=== PATIENT | female | born 1955 | race Caucasian/White ===

== ENCOUNTER 2017-04-20 09:21 | Emergency (ER) | payer BC ==
[2017-04-20 09:27] VITALS: BP 177/73; BMI 27.3
--- NOTE | 2017-04-20 11:09 | DR.GENAD ---
HPI - PCP Primary Care Physician: JAI - HPI Comment HPI Comment: PATIENT DENIES FEVER. NOT RELATED TO FOOD. PAIN GENERALIZE WITHOUT RADIATION. HEADACHE WORSE EVER. DIFFERENT FROM PREVIOUS HEADACHE. - Complaint/Symptoms Chief Complaint Doctors Comments: ABDOMINAL PAIN, NAUSEA, VOMITING AND HEADACHE TIMES SEVERAL HOURS. Chief Complaint:: "I HAVE BEEN THROWING UP AND NOW I HAVE A MIGRAINE Self Treatment fo Chief Complaint: NONE - Nurses notes reviewed Nurses Notes Review: Yes - Source History Provided: Patient - Mode of Arrival Mode of Arrival: Ambulatory - Timing Onset of Chief Complaint: 04/20/17 Came on: Suddenly - Duration Duration: Constant Duration: Hours - Severity Severity: Moderate PMH - PMH Past Medical History: Yes Past Medical History: Angina, Migraines, Liver Disease Past Surgical History: Yes Past Surgical History Comment: LIVER BX - Family History History of Family Medical Conditions: Yes Family Medical History: Hypertension - Social History Does patient currently use any type of tobacco product: No Have you used tobacco products in the last 12 months: No Type of Tobacco Use: None Does any household member use tobacco: No Alcohol Use: None Do you use any recreational Drugs:: No Lives With: Family Lives Where: Home - infectious screening In the last 2 months have you had wt loss of >10#?: NO Have you had fever, night sweats or hemotysis?: No Have you traveled outside the country in the last 6 months?: No Isolation: Standard ROS - Review of Systems Constitutional: No Symptoms Reported Eyes: No Symptoms Reported ENTM: No Symptoms Reported Respiratoy: No Symptoms Reported Cardiovascular: No Symptoms Reported Gastrointestinal/Abdominal: Abdominal Pain, Nausea, Vomiting Genitourinary: No Symptoms Reported Neurological: Headache Musculoskeletal: No Symptoms Reported Integumentary: No Symptoms Reported Hematologic/Lymphatic: No Symptoms Reported Endocrine: No Symptoms Reported All Other Systems: Reviewed and Negative PE - Vital Signs Vitals: Temperature 98.3 F Pulse Rate 77 Respiratory Rate 18 Blood Pressure 177/73 O2 Sat by Pulse Oximetry 98 - General Limitations: No Limitations General Appearance: Alert - Head Head Exam: Normal Inspection - Eyes Eye exam: Normal Appearance - ENT ENT Exam: Normal External Ear Exam External Ear Exam: Normal External Inspection TM/Canal Exam: Bilateral Normal Nose Exam: Normal Nose Exam Mouth Exam: Normal Inspection Throat Exam: Normal Inspection - Neck Neck Exam: Normal Inspection - Chest Chest Inspection: Symmetric Chest Wall Rise - Respiratory Respiratory Exam: Normal Lung Sounds Bilat Respiratory Exam: Bilateral Clear to Auscultation - Cardiovascular Cardiovascular Exam: Regular Rate, Normal Rhythm, Normal Heart Sounds - Abdominal Exam Abdominal Exam: Normal Bowel Sounds, Soft, Tenderness, Hyperactive Bowel Sounds Abdominal Tenderness: Diffuse, Moderate - Extremities Extremities Exam: Normal Inspection - Back Back Exam: Normal Inspection - Neurologic Neurological Exam: Alert, Oriented X3, CN II-XII Intact, Normal Gait, Reflexes Normal. negative: Motor Sensory Deficit - Psychiatric Psychiatric Exam: Normal Affect, Normal Mood - Skin Skin Exam: Normal Color MDM - Differential Diagnosis Differential Diagnosis: MIGRAINE, CVA, BOWEL OBSTRUCTION, ABDOMINAL PAIN Course - Treatment Treatment: SEE ORDERS - Education/Counseling Education/Counseling: Patient, Family, Education Educated On: Diagnosis, Needs for Follow Up ROR - Labs Reviewed Laboratory Results Reviewed?: Yes Result Diagrams: 04/20/17 11:25 04/20/17 11:25 Laboratory: WBC 6.2 X10^3/uL (3.6-10.0) 04/20/17 11:25 RBC 4.30 X10^6/uL (3.5-5.4) 04/20/17 11:25 Hgb 12.9 g/dL (12.0-16.0) 04/20/17 11:25 Hct 38.2 % (36.0-47.0) 04/20/17 11:25 MCV 88.8 fL (80.0-100.0) 04/20/17 11:25 MCH 29.9 pg (27.0-34.0) 04/20/17 11:25 MCHC 33.7 g/dL (33.0-35.0) 04/20/17 11:25 RDW 13.6 % (11.6-16.5) 04/20/17 11:25 Plt Count 132 X10^3/uL (150.0-450.0) L 04/20/17 11:25 MPV 9.1 fL (7.4-11.0) 04/20/17 11:25 Neut % 75.0 % (42.0-75.0) 04/20/17 11:25 Lymph % 18.6 % (21.0-51.0) L 04/20/17 11:25 Isabella % 5.6 % (0.0-13.0) 04/20/17 11:25 Eos % 0.3 % (0.9-2.9) L 04/20/17 11:25 Baso % 0.5 % (0.2-1.0) 04/20/17 11:25 Neut # 4.6 x10^3/uL (2.2-4.8) 04/20/17 11:25 Lymph # 1.1 X10^3/uL (1.3-2.9) L 04/20/17 11:25 Isabella # 0.3 x10^3/uL (0.3-0.8) 04/20/17 11:25 Eos # 0.0 x10^3/uL (0.0-0.2) 04/20/17 11:25 Baso # 0.0 X10^3/uL (0.0-0.1) 04/20/17 11:25 Absolute Nucleated RBC 0.0 /100WBC 04/20/17 11:25 Sodium 142 mmol/L (136-145) 04/20/17 11:25 Corrected Sodium 142 mmol/L (136-145) 04/20/17 11:25 Potassium 4.1 mmol/L (3.5-5.1) 04/20/17 11:25 Chloride 108 mmol/L (98-107) H 04/20/17 11:25 Carbon Dioxide 27.9 mmol/L (21-32) 04/20/17 11:25 BUN 10 mg/dL (7-18) 04/20/17 11:25 Creatinine 0.77 mg/dL (0.55-1.02) 04/20/17 11:25 Est GFR (MDRD) Af Amer > 60 (>60) 04/20/17 11:25 Est GFR (MDRD) Non-Af > 60 (>60) 04/20/17 11:25 Glucose 118 mg/dL (65-99) H 04/20/17 11:25 Calcium 9.1 mg/dL (8.5-10.1) 04/20/17 11:25 Corrected Calcium 10.0 mg/dL (8.5-10.1) 04/20/17 11:25 Total Bilirubin 0.80 mg/dL (0.2-1.0) 04/20/17 11:25 AST 39 Units/L (15-37) H 04/20/17 11:25 ALT 26 Units/L (12-78) 04/20/17 11:25 Alkaline Phosphatase 175 Units/L (46-116) H 04/20/17 11:25 Total Protein 6.2 g/dL (6.4-8.2) L 04/20/17 11:25 Albumin 2.9 g/dL (3.4-5.0) L 04/20/17 11:25 Globulin 3.3 g/dL (2.5-4.5) 04/20/17 11:25 Albumin/Globulin Ratio 0.9 Ratio (1.1-2.1) L 04/20/17 11:25 Amylase 28 Units/L (25-115) 04/20/17 11:25 Lipase 95 Units/L (73-393) 04/20/17 11:25 - XRAY XRAY Interpreted by: Radiologist XRAY Findings: REPORT DISCUSS WITH PATIENT. - Diagnosis Discharge Problem: Migraine, Sinusitis Vomiting Qualifiers: Vomiting type: bilious vomiting Nausea presence: with nausea Qualified Code(s) : R11.14 - Bilious vomiting Abdominal pain Qualifiers: Abdominal location: generalized Qualified Code(s): R10.84 - Generalized abdominal pain - Discharge Plan Disposition: 01 HOME, SELF-CARE Condition: Stable Prescriptions: Amoxicillin [Amoxil 875 mg] 875 mg PO BID #14 tab Ketorolac Tromethamine [Toradol Tab] 10 mg PO Q8H PRN #12 tab PRN Reason: Pain Ondansetron HCl [Zofran Tab 4 mg] 4 mg PO Q8H PRN #12 tab PRN Reason: Nausea/Vomiting - Follow ups/Referrals Follow ups/Referrals: Trip Romano [Primary Care Provider] - 3 days - Instructions Instructions: Migraine Headache, [id number], Sinusitis, Adult, [id number], Nausea and Vomiting, Adult, [id number] Additional Instructions: RETURN TO ED IF WORSE.
[2017-04-20] MEDS ORDERED: ZOFRAN INJ 4 MG VIAL IM ONE (11:17)
[2017-04-20] MEDS ORDERED: TORADOL 60 MG VIAL IM ONE (11:17)
[2017-04-20 11:42] LABS: BASOPHILS % (AUTO) 0.5 % (0.2-1.0); EOSINOPHILS % (AUTO) 0.3 % (0.9-2.9); HEMATOCRIT 38.2 % (36.0-47.0); HEMOGLOBIN 12.9 g/dL (12.0-16.0); LYMPHOCYTES # (AUTO) 1.1 X10^3/uL (1.3-2.9); LYMPHOCYTES % (AUTO) 18.6 % (21.0-51.0); MEAN CORPUSCULAR HEMOGLOBIN 29.9 pg (27.0-34.0); MEAN CORPUSCULAR HGB CONC 33.7 g/dL (33.0-35.0); MEAN CORPUSCULAR VOLUME 88.8 fL (80.0-100.0); MEAN PLATELET VOLUME 9.1 fL (7.4-11.0); MONOCYTES # (AUTO) 0.3 x10^3/uL (0.3-0.8); MONOCYTES % (AUTO) 5.6 % (0.0-13.0); NEUTROPHILS # (AUTO) 4.6 x10^3/uL (2.2-4.8); PLATELET COUNT 132 X10^3/uL (150.0-450.0); RED CELL DISTRIBUTION WIDTH 13.6 % (11.6-16.5); WHITE BLOOD COUNT 6.2 X10^3/uL (3.6-10.0)
[2017-04-20 11:51] LABS: ALANINE AMINOTRANSFERASE 26 Units/L (12-78); ALBUMIN 2.9 g/dL (3.4-5.0); ALKALINE PHOSPHATASE 175 Units/L (46-116); AMYLASE 28 Units/L (25-115); ASPARTATE AMINO TRANSFERASE 39 Units/L (15-37); BLOOD UREA NITROGEN 10 mg/dL (7-18); CALCIUM 9.1 mg/dL (8.5-10.1); CARBON DIOXIDE 27.9 mmol/L (21-32); CHLORIDE 108 mmol/L (98-107); COR NA(FOR HYPERGLY) 142 mmol/L (136-145); CREATININE 0.77 mg/dL (0.55-1.02); LIPASE 95 Units/L (73-393); SODIUM 142 mmol/L (136-145); TOTAL PROTEIN 6.2 g/dL (6.4-8.2); eGFR BLACK RACES > 60 (>60); eGFR NON BLACK RACES > 60 (>60)
[2017-04-20] MEDS ORDERED: TORADOL 60 MG VIAL ONE (12:13)
[2017-04-20] MEDS ORDERED: ZOFRAN INJ 4 MG VIAL ONE (12:13)
== END 2017-04-20 13:39 | disposition home or self-care (01) ==
LOC: ER 09:31
DX: G43.909 Migraine, unspecified, not intractable, without status migrainosus (principal); R11.14 Bilious vomiting; R10.84 Generalized abdominal pain; J32.9 Chronic sinusitis, unspecified
CPT/HCPCS: 36415; 70450; 74022; 80053; 82150; 83690; 85025; 96372; 99283; J1885; J2405

== ENCOUNTER 2017-10-10 19:34 | Emergency (ER) | payer BC ==
[2017-10-10 19:44] VITALS: BMI 27.0
--- NOTE | 2017-10-10 20:04 | DR.GENAD ---
HPI - PCP Primary Care Physician: - Complaint/Symptoms Chief Complaint Doctors Comments: Patient presents with complaint of abdominal pain that radiates to ther right back. She admits to cardiac stents a few months agol Chief Complaint:: Pt complaining of sharp pain at the top of abdomen and right middle of back. Pt states she had a stint put in in april of last year. Patient states she was at [employer] and the pain started about 15-20 minutes ago. - Source History Provided: Patient - Mode of Arrival Mode of Arrival: Ambulatory - Timing Onset of Chief Complaint: 10/10/17 PMH - PMH Past Medical History: Yes Past Medical History: Angina, Arthritis, Migraines, Liver Disease Past Surgical History: Yes Past Surgical History Comment: Stint last year - Family History History of Family Medical Conditions: Yes Family Medical History: Diabetes Mellitus, Cancer, NM Family Medical History Comment: BROTHER HAD SEVERAL STINTS AND HEART ATTACK - Social History Alcohol Use: None Do you use any recreational Drugs:: No - infectious screening Have you traveled outside the country in the last 6 months?: No Isolation: Standard ROS - Review of Systems Eyes: No Symptoms Reported ENTM: No Symptoms Reported Respiratoy: No Symptoms Reported Cardiovascular: No Symptoms Reported Gastrointestinal/Abdominal: No Symptoms Reported Genitourinary: No Symptoms Reported Neurological: No Symptoms Reported Musculoskeletal: No Symptoms Reported Integumentary: No Symptoms Reported Hematologic/Lymphatic: No Symptoms Reported Endocrine: No Symptoms Reported Psychiatric: No Symptoms Reported All Other Systems: Reviewed and Negative PE - Vital Signs Vitals: Temperature 99.4 F Pulse Rate [Left Radial] 67 Pulse Rate 66 Respiratory Rate 28 Blood Pressure [Right Arm] 164/80 Blood Pressure 169/73 O2 Sat by Pulse Oximetry 99 - General Limitations: No Limitations General Appearance: Alert, In No Apparent Distress - Head Head Exam: Normal Inspection, Atraumatic - Eyes Eye exam: Normal Appearance, PERRL, EOMI - ENT ENT Exam: Normal Exam External Ear Exam: Normal External Inspection TM/Canal Exam: Bilateral Normal Nose Exam: Normal Nose Exam Mouth Exam: Normal Inspection Throat Exam: Normal Inspection - Neck Neck Exam: Normal Inspection - Chest Chest Inspection: Normal Inspection, Symmetric Chest Wall Rise - Respiratory Respiratory Exam: Normal Lung Sounds Bilat Respiratory Exam: Bilateral Clear to Auscultation - Cardiovascular Cardiovascular Exam: Regular Rate, Normal Rhythm - Abdominal Exam Abdominal Exam: Normal Inspection, Normal Bowel Sounds Abdominal Tenderness: negative: RUQ, RLQ, LUQ, LLQ, Epigastrium, Suprapubic, Diffuse, Mild, Moderate, Severe, Other - Extremities Extremities Exam: Normal Inspection, Full ROM - Back Back Exam: Normal Inspection, Full ROM - Neurologic Neurological Exam: Alert, Oriented X3, CN II-XII Intact - Psychiatric Psychiatric Exam: Normal Affect - Skin Skin Exam: Warm, Dry, Intact Course - Reevaluation 1st: Improved - Education/Counseling Educated On: Treatment, Diagnosis, Prognosis, Needs for Follow Up ROR - Labs Reviewed Result Diagrams: 10/10/17 20:14 10/10/17 20:14 Laboratory: WBC 8.3 X10^3/uL (3.6-10.0) 10/10/17 20:14 RBC 4.41 X10^6/uL (3.5-5.4) 10/10/17 20:14 Hgb 13.1 g/dL (12.0-16.0) 10/10/17 20:14 Hct 38.5 % (36.0-47.0) 10/10/17 20:14 MCV 87.4 fL (80.0-100.0) 10/10/17 20:14 MCH 29.7 pg (27.0-34.0) 10/10/17 20:14 MCHC 34.0 g/dL (33.0-35.0) 10/10/17 20:14 RDW 14.1 % (11.6-16.5) 10/10/17 20:14 Plt Count 153 X10^3/uL (150.0-450.0) 10/10/17 20:14 MPV 9.5 fL (7.4-11.0) 10/10/17 20:14 Neut % (Auto) 59.2 % (42.0-75.0) 10/10/17 20:14 Lymph % (Auto) 28.3 % (21.0-51.0) 10/10/17 20:14 [place] % (Auto) 10.8 % (0.0-13.0) 10/10/17 20:14 Eos % (Auto) 1.2 % (0.9-2.9) 10/10/17 20:14 Baso % (Auto) 0.5 % (0.2-1.0) 10/10/17 20:14 Neut # (Auto) 4.9 x10^3/uL (2.2-4.8) H 10/10/17 20:14 Lymph # (Auto) 2.3 X10^3/uL (1.3-2.9) 10/10/17 20:14 [place] # (Auto) 0.9 x10^3/uL (0.3-0.8) H 10/10/17 20:14 Eos # (Auto) 0.1 x10^3/uL (0.0-0.2) 10/10/17 20:14 Baso # (Auto) 0.0 X10^3/uL (0.0-0.1) 10/10/17 20:14 Absolute Nucleated RBC 0.0 /100WBC 10/10/17 20:14 INR Target Range - 10/10/17 20:14 INR 0.98 (0.8-1.3) 10/10/17 20:14 APTT 27.4 SECONDS (22.9-36.5) 10/10/17 20:14 PTT Comment - 10/10/17 20:14 D-Dimer 155 ng/mL (0-400) 10/10/17 20:14 Sodium 141 mmol/L (136-145) 10/10/17 20:14 Corrected Sodium 142 mmol/L (136-145) 10/10/17 20:14 Potassium 4.0 mmol/L (3.5-5.1) 10/10/17 20:14 Chloride 107 mmol/L (98-107) 10/10/17 20:14 Carbon Dioxide 27.1 mmol/L (21-32) 10/10/17 20:14 BUN 16 mg/dL (7-18) 10/10/17 20:14 Creatinine 0.80 mg/dL (0.55-1.02) 10/10/17 20:14 Est GFR (MDRD) Af Amer > 60 (>60) 10/10/17 20:14 Est GFR (MDRD) Non-Af > 60 (>60) 10/10/17 20:14 Glucose 134 mg/dL (65-99) H 10/10/17 20:14 Calcium 8.4 mg/dL (8.5-10.1) L 10/10/17 20:14 Corrected Calcium 9.2 mg/dL (8.5-10.1) 10/10/17 20:14 Magnesium 1.7 mg/dL (1.7-2.9) 10/10/17 20:14 Total Bilirubin 0.60 mg/dL (0.2-1.0) 10/10/17 20:14 AST 24 Units/L (15-37) 10/10/17 20:14 ALT 24 Units/L (12-78) 10/10/17 20:14 Alkaline Phosphatase 166 Units/L (46-116) H 10/10/17 20:14 Creatine Kinase 67 Units/L (26-192) 10/10/17 20:14 CK-MB (CK-2) < 1.0 ng/mL (0-4.0) 10/10/17 20:14 CK/CKMB % Calc 1.5 % (<4) 10/10/17 20:14 Troponin I < 0.02 ng/mL (0-1.5) 10/10/17 20:14 Total Protein 6.4 g/dL (6.4-8.2) 10/10/17 20:14 Albumin 3.0 g/dL (3.4-5.0) L 10/10/17 20:14 Globulin 3.4 g/dL (2.5-4.5) 10/10/17 20:14 Albumin/Globulin Ratio 0.9 Ratio (1.1-2.1) L 10/10/17 20:14 Specimen Type Clean catch urine 10/10/17 21:14 Urine Color Yellow (YELLOW) 10/10/17 21:14 Urine Appearance Clear (CLEAR) 10/10/17 21:14 Urine pH 5.0 (5.0 - 8.0) 10/10/17 21:14 Ur Specific [place] 1.025 (1.000-1.030) 10/10/17 21:14 Urine Protein Negative (NEGATIVE) 10/10/17 21:14 Urine Glucose (UA) Negative (NEGATIVE) 10/10/17 21:14 Urine Ketones Negative (NEGATIVE) 10/10/17 21:14 Urine Occult Blood 1+ (NEGATIVE) 10/10/17 21:14 Urine Nitrite Negative (NEGATIVE) 10/10/17 21:14 Urine Bilirubin Negative (NEGATIVE) 10/10/17 21:14 Urine Urobilinogen 1+ (NORMAL) 10/10/17 21:14 Ur Leukocyte Esterase 1+ (NEGATIVE) 10/10/17 21:14 Urine RBC 0-2 /HPF (NONE SEEN) 10/10/17 21:14 Urine WBC 0-2 /HPF (NONE SEEN) 10/10/17 21:14 Ur Squamous Epith Cells Few /HPF (NEGATIVE) 10/10/17 21:14 Urine Bacteria Trace /HPF (NEGATIVE) 10/10/17 21:14 Ur Culture Indicated? No/not indicated 10/10/17 21:14 - XRAY XRAY Interpreted by: Radiologist (Chest: Conintued normal heart size with clear lungs and pleural spaces. Surface clothing artifact are projected over the central mediastinum . Impression No acute chest findings.) - Diagnosis Discharge Problem: Abdominal pain Qualifiers: Abdominal location: unspecified location Qualified Code(s): R10.9 - Unspecified abdominal pain - Discharge Plan Condition: Stable - Follow ups/Referrals Follow ups/Referrals: Trip Romano [Primary Care Provider] - 3 days - Instructions
[2017-10-10 20:25] LABS: BASOPHILS % (AUTO) 0.5 % (0.2-1.0); EOSINOPHILS # (AUTO) 0.1 x10^3/uL (0.0-0.2); EOSINOPHILS % (AUTO) 1.2 % (0.9-2.9); HEMATOCRIT 38.5 % (36.0-47.0); HEMOGLOBIN 13.1 g/dL (12.0-16.0); LYMPHOCYTES # (AUTO) 2.3 X10^3/uL (1.3-2.9); LYMPHOCYTES % (AUTO) 28.3 % (21.0-51.0); MEAN CORPUSCULAR HEMOGLOBIN 29.7 pg (27.0-34.0); MEAN CORPUSCULAR VOLUME 87.4 fL (80.0-100.0); MEAN PLATELET VOLUME 9.5 fL (7.4-11.0); MONOCYTES # (AUTO) 0.9 x10^3/uL (0.3-0.8); MONOCYTES % (AUTO) 10.8 % (0.0-13.0); NEUTROPHILS # (AUTO) 4.9 x10^3/uL (2.2-4.8); NEUTROPHILS % (AUTO) 59.2 % (42.0-75.0); PLATELET COUNT 153 X10^3/uL (150.0-450.0); RED BLOOD COUNT 4.41 X10^6/uL (3.5-5.4); RED CELL DISTRIBUTION WIDTH 14.1 % (11.6-16.5); WHITE BLOOD COUNT 8.3 X10^3/uL (3.6-10.0)
--- NOTE | 2017-10-10 20:29 | RAD ---
Examination: Portable AP chest History: Pain Comparison reference 01/12/2011 Findings: Continued normal heart size with clear lungs and pleural spaces. Surface clothing artifacts are projected over the central mediastinum. Impression: No acute chest findings. Reported By:
[2017-10-10 20:47] LABS: ALANINE AMINOTRANSFERASE 24 Units/L (12-78); ALKALINE PHOSPHATASE 166 Units/L (46-116); ASPARTATE AMINO TRANSFERASE 24 Units/L (15-37); BLOOD UREA NITROGEN 16 mg/dL (7-18); CALCIUM 8.4 mg/dL (8.5-10.1); CARBON DIOXIDE 27.1 mmol/L (21-32); CHLORIDE 107 mmol/L (98-107); CKMB % 1.5 % (<4); COR CA(FOR HYPOALB) 9.2 mg/dL (8.5-10.1); COR NA(FOR HYPERGLY) 142 mmol/L (136-145); CREATINE KINASE 67 Units/L (26-192); CREATINE KINASE MB < 1.0 ng/mL (0-4.0); MAGNESIUM 1.7 mg/dL (1.7-2.9); SODIUM 141 mmol/L (136-145); TOTAL PROTEIN 6.4 g/dL (6.4-8.2); TROPONIN I < 0.02 ng/mL (0-1.5); eGFR BLACK RACES > 60 (>60); eGFR NON BLACK RACES > 60 (>60)
[2017-10-10 21:28] LABS: BILIRUBIN,URINE NEGATIVE (NEGATIVE); BLOOD/HEMOGLOBIN,URINE 1+ (NEGATIVE); GLUCOSE, URINE NEGATIVE (NEGATIVE); KETONES,URINE NEGATIVE (NEGATIVE); LEUKOCYTE ESTERASE ,URINE 1+ (NEGATIVE); NITRITES,URINE NEGATIVE (NEGATIVE); PROTEIN,URINE NEGATIVE (NEGATIVE); UROBILINOGEN,URINE 1+ (NORMAL)
[2017-10-10 22:07] LABS: APPEARANCE,URINE CLEAR (CLEAR); COLOR,URINE YELLOW (YELLOW)
[2017-10-10 22:08] LABS: BACTERIA,URINE TRACE /HPF (NEGATIVE); RBC,URINE 0-2 /HPF (NONE SEEN); SQUAMOUS EPITHELIAL CELL,UR FEW /HPF (NEGATIVE)
[2017-10-10 22:18] VITALS: BP 145/65
== END 2017-10-10 22:18 | disposition home or self-care (01) ==
LOC: ER 19:34
DX: R10.84 Generalized abdominal pain (principal)
CPT/HCPCS: 36415; 71045; 80053; 81001; 82550; 82553; 83735; 84484; 85025; 85378; 85610; 85730; 93005; 93010; 96365; 99282; 99283; 99284

== ENCOUNTER → 2017-10-20 | Outpatient (CLI) | payer BC ==
[2017-10-10 22:18] VITALS: BP 145/65
--- NOTE | 2017-10-20 11:43 | CT ---
Examination: CT of the abdomen and pelvis without contrast. Clinical History: Right flank pain, history of kidney stones. Technique: Multiple axial images were obtained from the lung bases down to the pubic symphysis. No or al or intravenous contrast was administered. Dose reduction techniques including automated exposure c ontrol (AEC) and adjustment of mA and kV were utilized. Comparison: CT of the abdomen with contrast dated 06/05/2016. Findings: Coronary artery calcifications are noted, suggestive of coronary artery disease. A tiny pericardial e ffusion is noted. The remainder of the visualized portion of the lung bases is unremarkable. Surgical clips are noted in the gallbladder fossa, consistent with a prior cholecystectomy. A lack of intravenous contrast limits evaluation of the solid intra-abdominal organs. A 3 mm calculus is seen within the bladder. No renal or ureteral calculus is noted. No hydronephrosis or hydroureter is evident. The kidneys and bladder are otherwise within normal limits. There is a persistent prominent gastroesophageal lymph node measuring 1.9 x 1.5 cm, which may have mi nimally decreased in size since the prior examination. The borderline prominent 1.3 x 1.0 cm lymph no de is again noted in the jose alfredo hepatis, but also appears slightly smaller. A small area of soft tissue seen posterior to the duodenum on the prior examination, is less well vis ualized on today's examination due to the lack of intravenous contrast, but appears essentially stabl e in size measuring approximately 2.3 x 1.6 cm. The etiology is uncertain. Continued follow-up is rec ommended. The liver has a cirrhotic appearance. No focal hepatic mass is noted. The spleen, pancreas and adrenal glands are normal in appearance. The abdominal aorta is calcified and mildly tortuous, but is normal in caliber. The bowel gas pattern is non-obstructive. There is no free air. Scattered diverticula are seen associated with the colon. There is no CT evidence for acute diverticu litis. The small bowel is grossly unremarkable. The appendix is not visualized. The uterus is surgically absent. No pelvic mass or fluid collection is noted. Degenerative changes are noted in the spine. There is a stable anterior wedge compression deformity o f the T12 vertebra. No acute osseous abnormality is noted. Impression: 1. Small 3 mm bladder calculus, with no renal or ureteral calculus noted. No associated hydronephrosi s or hydroureter is seen. 2. Persistent prominent lymph nodes in the gastroesophageal region and the jose alfredo hepatis, as describe d above, which appear to have mildly decreased in size. The etiology is uncertain. Continued follow-u p is recommended. 3. A small area of soft tissue seen posterior to the duodenum on the prior examination, is less well visualized on today's examination due to the lack of intravenous contrast, but appears essentially st able in size measuring approximately 2.3 x 1.6 cm. The etiology is uncertain. Continued follow-up is recommended. 4. Cirrhotic liver. 5. Colonic diverticulosis without CT evidence for an acute diverticulitis. 6. Coronary artery calcifications, suggestive of coronary artery disease. 7. Tiny pericardial effusion. 8. Postsurgical changes from a prior cholecystectomy and hysterectomy. Reported By:
== END ==
LOC: RAD 10:39
PROVIDERS: ATTEND Internal Medicine
DX: R31.9 Hematuria, unspecified (principal); R10.84 Generalized abdominal pain
CPT/HCPCS: 74176

== ENCOUNTER 2022-08-05 12:10 | Observation (INO) ==
[2022-08-05] MEDS ORDERED: NS 1,000 ML IV 1,000 ML with SODIUM BICARBONATE 8.4% INJ ADULT 50 ML IV ONE ×4 (13:52→14:55)
[2022-08-05 14:14] LABS: BASOPHILS % (AUTO) 0.8 % (0.2-1.0); EOSINOPHILS # (AUTO) 0.1 x10^3/uL (0.0-0.2); EOSINOPHILS % (AUTO) 2.1 % (0.9-2.9); HEMATOCRIT 36.5 % (36.0-47.0); LYMPHOCYTES # (AUTO) 1.5 X10^3/uL (1.3-2.9); LYMPHOCYTES % (AUTO) 34.9 % (21.0-51.0); MEAN CORPUSCULAR HEMOGLOBIN 28.6 pg (27.0-34.0); MEAN CORPUSCULAR HGB CONC 32.9 g/dL (33.0-35.0); MEAN CORPUSCULAR VOLUME 86.8 fL (80.0-100.0); MEAN PLATELET VOLUME 9.3 fL (7.4-11.0); MONOCYTES # (AUTO) 0.5 x10^3/uL (0.3-0.8); MONOCYTES % (AUTO) 10.3 % (0.0-13.0); NEUTROPHILS # (AUTO) 2.3 x10^3/uL (2.2-4.8); NEUTROPHILS % (AUTO) 51.9 % (42.0-75.0); RED BLOOD COUNT 4.21 X10^6/uL (3.5-5.4); RED CELL DISTRIBUTION WIDTH 16.5 % (11.6-16.5); WHITE BLOOD COUNT 4.4 X10^3/uL (3.6-10.0)
[2022-08-05 14:29] LABS: ALBUMIN 3.1 g/dL (3.4-5.0); CALCIUM 8.7 mg/dL (8.5-10.1); CARBON DIOXIDE 27.3 mmol/L (21-32); COR CA(FOR HYPOALB) 9.4 mg/dL (8.5-10.1); CREATININE 1.43 mg/dL (0.55-1.02); TOTAL PROTEIN 5.8 g/dL (6.4-8.2)
[2022-08-05 15:14] VITALS: BMI 25.3
[2022-08-05] MEDS: NS 1,000 ML IV 1,000 ML with SODIUM BICARBONATE 8.4% INJ ADULT 50 ML IV SCH ×2 (15:55)
[2022-08-05 17:27] LABS: BILIRUBIN,URINE NEGATIVE (NEGATIVE); BLOOD/HEMOGLOBIN,URINE NEGATIVE (NEGATIVE); GLUCOSE, URINE NEGATIVE (NEGATIVE); KETONES,URINE NEGATIVE (NEGATIVE); LEUKOCYTE ESTERASE ,URINE 1+ (NEGATIVE); NITRITES,URINE NEGATIVE (NEGATIVE); PROTEIN,URINE NEGATIVE (NEGATIVE); UROBILINOGEN,URINE NORMAL (NORMAL)
[2022-08-05 17:37] LABS: APPEARANCE,URINE SLIGHTLY HAZY (CLEAR); BACTERIA,URINE 2+ /HPF (NEGATIVE); COLOR,URINE YELLOW (YELLOW); RBC,URINE NONE SEEN /HPF (0-3); SQUAMOUS EPITHELIAL CELL,UR RARE /HPF (NEGATIVE)
[2022-08-05] MEDS ORDERED: K-RIDER 10 MEQ/NS 100 ML 10 MEQ/100 ML BAG IV PRN (17:37)
[2022-08-05] MEDS ORDERED: KLOR-CON PO PRN (17:37)
[2022-08-05] MEDS ORDERED: MICRO K EXTEN CAP 10 MEQ PO PRN (17:37)
[2022-08-05] MEDS ORDERED: POTASSIUM CHL 40 MEQ/NS 0.45% 500 ML IV PRN (17:37)
[2022-08-05] MEDS ORDERED: POTASSIUM CHL 60 MEQ/NS 0.45% 500 ML IV PRN (17:37)
[2022-08-05] MEDS ORDERED: POTASSIUM CHLORIDE LIQ 20 MEQ UDC PO PRN (17:37)
[2022-08-05] MEDS: K-DUR TAB 20 MEQ PO PRN (18:08)
[2022-08-05] MEDS ORDERED: ROCEPHIN VIAL 1 GRAM 1 G in NS 100 ML IV + SPIKE MINIBAG* 100 ML IV SCH (21:45)
[2022-08-05] MEDS ORDERED: ROCEPHIN VIAL 1 GRAM ONE (22:37)
[2022-08-05] MEDS ORDERED: NS 100 ML IV 100 ML ONE (22:37)
[2022-08-06] MEDS: NS 1,000 ML IV 1,000 ML with SODIUM BICARBONATE 8.4% INJ ADULT 50 ML IV SCH ×4 (00:13→08:00)
[2022-08-06 05:04] LABS: BASOPHILS % (AUTO) 0.6 % (0.2-1.0); EOSINOPHILS # (AUTO) 0.1 x10^3/uL (0.0-0.2); EOSINOPHILS % (AUTO) 1.6 % (0.9-2.9); HEMATOCRIT 37.1 % (36.0-47.0); HEMOGLOBIN 12.5 g/dL (12.0-16.0); LYMPHOCYTES # (AUTO) 1.3 X10^3/uL (1.3-2.9); LYMPHOCYTES % (AUTO) 41.6 % (21.0-51.0); MEAN CORPUSCULAR HEMOGLOBIN 28.7 pg (27.0-34.0); MEAN CORPUSCULAR HGB CONC 33.9 g/dL (33.0-35.0); MEAN CORPUSCULAR VOLUME 84.9 fL (80.0-100.0); MEAN PLATELET VOLUME 9.4 fL (7.4-11.0); MONOCYTES # (AUTO) 0.4 x10^3/uL (0.3-0.8); NEUTROPHILS # (AUTO) 1.4 x10^3/uL (2.2-4.8); NEUTROPHILS % (AUTO) 44.2 % (42.0-75.0); RED BLOOD COUNT 4.36 X10^6/uL (3.5-5.4); RED CELL DISTRIBUTION WIDTH 16.1 % (11.6-16.5); WHITE BLOOD COUNT 3.2 X10^3/uL (3.6-10.0)
[2022-08-06 05:09] LABS: ALANINE AMINOTRANSFERASE 22 Units/L (12-78); ALBUMIN 2.8 g/dL (3.4-5.0); ALKALINE PHOSPHATASE 126 Units/L (46-116); ASPARTATE AMINO TRANSFERASE 32 Units/L (15-37); BLOOD UREA NITROGEN 24 mg/dL (7-18); CARBON DIOXIDE 25.8 mmol/L (21-32); CHLORIDE 112 mmol/L (98-107); MAGNESIUM 1.6 mg/dL (2.0-2.9); SODIUM 147 mmol/L (136-145); TOTAL PROTEIN 5.3 g/dL (6.4-8.2); eGFR NON BLACK RACES 52 (>60)
[2022-08-06] MEDS ORDERED: ZOFRAN INJ 4 MG VIAL IVP PRN (05:22)
[2022-08-06] MEDS: MAGNESIUM SULFATE 1 GRAM/100 mL PREMIX 1 G/100 ML BAG IV PRN ×2 (05:44→08:50)
[2022-08-06] MEDS: K-DUR TAB 20 MEQ PO PRN (11:47)
--- NOTE | 2022-08-06 12:36 | DR.UPDATE ---
H&P Update Prescription drug monitoring program results: PDMP was not reviewed H&P Reviewed: Yes Any changes to H&P?: Yes Changes noted:: IS A DIRECT ADMISSION FROM THE OFFICE FOR OBSERVATION TREATMENT OF ACUTE RENAL FAILURE, DEHYDRATION, AND URINARY TRACT INFECTION. OUTPATIENT LABS REVEALED A BUN OF 41 AND A CREATININE OF 3.02. PATIENT COMPLAINED OF HYPOTENSION FOR THE PAST WEEK, PAINFUL URINATION, FATIGUE, LOSS OF ENERGY, NAUSEA, DIZZINESS, GAIT ABNORMALITY, AND SHORTNESS OF BREATH. HER PMH INCLUDES: TINNITUS, CAD, VA, HYPERLIPIDEMIA, HTN, CARDIAC STENTS, COLITIS, HYSTERECTOMY, OSTEOARTHRITIS, RHEUMATOID ARTHRITIS, DEGENERATIVE DISC DISEASE, CHOLECYSTECTOMY, HYSTERECTOMY. ON ARRIVAL TO THE HOSPTIAL, VITALS WERE: 98.4-62-18-98%-166/71. LABS WERE OBTAINED. WBC 4.4, RBC 4.21, HGB 12.0, HCT 36.5, PLT COUNT 117, SODIUM 139, POTASSIUM 3.2, CHLORIDE 106, CARBON DIOXIDE 27.3, BUN 32, CREATININE 1.43, GLUCOSE 128, CALCIUM 8.7, AST 37, ALT 28, ALK PHOS 142, TOTAL PROTEIN 5.8, ALBUMIN 3.1. A URINALYSIS WAS OBTAINED. IT REVEALED: WBC 10-20, RBC NONE SEEN, BACTERIA 2+, LEUKOCYTES 1+. A URINE CULTURE WAS SET UP. SHE WAS GIVEN A NORMAL SALINE BOLUS WITH ONE AMP OF BICARB IN EACH LITER. SHE WAS THEN STARTED ON NORMAL SALINE WITH ONE AMP BICARB AT 125 ML/HR, ROCEPHIN 1G IV HS, ZOFRAN 4MG IV Q6H PRN, AND THE POTASSIUM AND MAGNESIUM PROTOCOLS. WE WILL RESUME HER HOME MEDICATIONS. OTHERWISE, WE PLAN TO FOLLOW-UP WITH AM LABS AND CONTINUE TO MONITOR. TIME SPENT ON CLINICAL ASSESSMENT, REVIWING LABS AND IMAGING, DECISION MAKING, AND DOCUMENTATION GREATER THAN 75 MINUTES. Patient was examined?: Yes
[2022-08-06] MEDS ORDERED: PHENERGAN TAB 25 MG PO PRN (12:41)
[2022-08-06] MEDS ORDERED: PERCOCET TAB 5/325 MG PO PRN ×2 (12:41→20:33)
[2022-08-06] MEDS: NS 1,000 ML IV 1,000 ML IV SCH ×3 (13:36→23:05)
[2022-08-06] MEDS: FLONASE NASAL SPRAY ENOSTRIL SCH (13:37)
[2022-08-06] MEDS: SINGULAIR TAB 10 MG PO SCH (13:39)
[2022-08-06] MEDS: TOPROL XL PO SCH (13:39)
[2022-08-06] MEDS: CELEXA PO SCH (13:39)
[2022-08-06] MEDS: PROTONIX TAB 40 MG PO SCH ×2 (13:39→20:33)
[2022-08-06] MEDS: ASPIRIN EC 81 MG PO SCH (13:39)
[2022-08-06] MEDS: NITRODUR PATCH 0.2 MG/HR TD SCH (13:44)
[2022-08-06] MEDS: ACTIGALL PO SCH ×2 (13:47→20:35)
[2022-08-06] MEDS: PILOCARPINE HCL 5 MG PO SCH ×2 (14:02→21:19)
[2022-08-06] MEDS ORDERED: ROCEPHIN VIAL 1 GRAM 1 G in NS 100 ML IV 100 ML IV SCH (21:00)
[2022-08-06] MEDS ORDERED: COZAAR PO SCH (21:00)
[2022-08-06] MEDS ORDERED: ZANAFLEX PO SCH (21:00)
[2022-08-06] MEDS ORDERED: ZyrTEC TAB 10 MG PO SCH (21:00)
[2022-08-06] MEDS ORDERED: LIPITOR TAB 40 MG PO SCH (21:00)
[2022-08-06] MEDS ORDERED: RESTORIL CAP 15 MG PO SCH (21:00)
[2022-08-07] MEDS: NS 1,000 ML IV 1,000 ML IV SCH (06:06)
[2022-08-07] MEDS: PILOCARPINE HCL 5 MG PO SCH (06:06)
[2022-08-07 06:11] LABS: BASOPHILS % (AUTO) 0.5 % (0.2-1.0); EOSINOPHILS # (AUTO) 0.1 x10^3/uL (0.0-0.2); EOSINOPHILS % (AUTO) 2.6 % (0.9-2.9); HEMATOCRIT 29.8 % (36.0-47.0); LYMPHOCYTES # (AUTO) 1.3 X10^3/uL (1.3-2.9); LYMPHOCYTES % (AUTO) 41.6 % (21.0-51.0); MEAN CORPUSCULAR HEMOGLOBIN 28.9 pg (27.0-34.0); MEAN CORPUSCULAR HGB CONC 33.7 g/dL (33.0-35.0); MEAN CORPUSCULAR VOLUME 85.8 fL (80.0-100.0); MEAN PLATELET VOLUME 8.7 fL (7.4-11.0); MONOCYTES # (AUTO) 0.4 x10^3/uL (0.3-0.8); MONOCYTES % (AUTO) 13.5 % (0.0-13.0); NEUTROPHILS # (AUTO) 1.3 x10^3/uL (2.2-4.8); NEUTROPHILS % (AUTO) 41.8 % (42.0-75.0); RED BLOOD COUNT 3.47 X10^6/uL (3.5-5.4); RED CELL DISTRIBUTION WIDTH 16.6 % (11.6-16.5); WHITE BLOOD COUNT 3.2 X10^3/uL (3.6-10.0)
[2022-08-07 06:23] LABS: ALANINE AMINOTRANSFERASE 18 Units/L (12-78); ALBUMIN 2.2 g/dL (3.4-5.0); ALKALINE PHOSPHATASE 107 Units/L (46-116); ASPARTATE AMINO TRANSFERASE 30 Units/L (15-37); BLOOD UREA NITROGEN 17 mg/dL (7-18); CALCIUM 7.6 mg/dL (8.5-10.1); CARBON DIOXIDE 25.8 mmol/L (21-32); CREATININE 1.06 mg/dL (0.55-1.02); SODIUM 147 mmol/L (136-145); TOTAL PROTEIN 4.4 g/dL (6.4-8.2); eGFR NON BLACK RACES 55 (>60)
[2022-08-07 06:33] LABS: CHLORIDE 115 mmol/L (98-107)
[2022-08-07] MEDS: PROTONIX TAB 40 MG PO SCH (09:36)
[2022-08-07] MEDS: ASPIRIN EC 81 MG PO SCH (09:36)
[2022-08-07] MEDS: CELEXA PO SCH (09:36)
[2022-08-07] MEDS: NITRODUR PATCH 0.2 MG/HR TD SCH (09:37)
[2022-08-07] MEDS: FLONASE NASAL SPRAY ENOSTRIL SCH (09:38)
[2022-08-07] MEDS: TOPROL XL PO SCH (09:38)
[2022-08-07] MEDS: SINGULAIR TAB 10 MG PO SCH (09:38)
[2022-08-07] MEDS ORDERED: ALBUMIN HUMAN 25%- 100 ML 100 ML IV SCH (11:00)
[2022-08-07] MEDS: ACTIGALL PO SCH (11:23)
[2022-08-07] MEDS ORDERED: PLAVIX PO SCH (12:59)
[2022-08-07 14:54] VITALS: BP 134/63
== END 2022-08-07 14:20 | disposition home or self-care (01) ==
LOC: MED/SURG 13:24 → INTOOBSV 13:24
PROVIDERS: ADMIT Internal Medicine; ATTEND Internal Medicine
DX: N17.8 Other acute kidney failure; E78.2 Mixed hyperlipidemia; I95.89 Other hypotension; R06.02 Shortness of breath; B96.29 Other Escherichia coli [E. coli] as the cause of diseases classified elsewhere; I10 Essential (primary) hypertension; N39.0 Urinary tract infection, site not specified; E86.0 Dehydration